=== PATIENT | female | born 1990 | race African-American/Black ===

== ENCOUNTER → 2024-03-28 10:46 | Outpatient (CLI) | payer SELFPAY ==
--- NOTE | 2024-03-28 10:47 | DI.RAD.S_ITS ---
PROCEDURE: XR WRIST RT MIN 3V INDICATIONS: Right wrist pain TECHNIQUE: 4 views of the wrist were acquired. COMPARISON: None. FINDINGS: Bones: No fractures or dislocations. No suspicious bony lesions. Soft tissues: No suspicious soft tissue calcifications. IMPRESSION: No acute osseous abnormality. If pain persists with conservative management, consider repeat x-ray in 10-14 days or cross-sectional imaging. Dictated by: Erich Hart M.D. on 03/28/2024 at 11:06 Approved by: Erich Hart M.D. on 03/28/2024 at 11:06
== END ==
PROVIDERS: Referring Provider Physician Assistant Medical; Visit Provider Physician Assistant Medical
DX: M25.531 Pain in right wrist (principal)
CPT/HCPCS: 73110

== ENCOUNTER → 2024-08-14 09:34 | Outpatient (CLI) | payer OTHER, SELFPAY ==
[2024-08-14 10:27] LABS: COVID-19 CEPHEID 4-PLEX PCR Negative (Negative); Influenza A - CEPHEID Flu A NEGATIVE (NEGATIVE); Influenza B - CEPHEID Flu B NEGATIVE (NEGATIVE); Respiratory Syncytial Virus Negative (Negative)
== END ==
PROVIDERS: Visit Provider Nurse Practitioner Family
DX: J02.9 Acute pharyngitis, unspecified (principal); R05.1 Acute cough; N94.9 Unspecified condition associated with female genital organs and menstrual cycle
CPT/HCPCS: 0241U; 87070; 87210

== ENCOUNTER → 2024-08-14 09:53 | Outpatient (CLI) | payer OTHER, SELFPAY ==
[2024-08-14 10:35] LABS: Pregnancy Test Urine Negative (Negative)
[2024-08-14 11:40] LABS: Hepatitis B Surface Antigen NEGATIVE s/c (NEGATIVE)
[2024-08-14 11:56] LABS: Urine N gonorrhoeae NOT DETECTED
[2024-08-14 11:57] LABS: HIV 1 & 2 Ab/Ag 4th Gen Combo NEGATIVE (NEGATIVE); Hep C Virus Ab w/Reflex Quant NEGATIVE s/c (NEGATIVE)
[2024-08-14 12:13] LABS: Urine Chlamydia NOT DETECTED
[2024-08-21 08:18] LABS: RPR Screen Non Reactive
== END ==
PROVIDERS: Referring Provider Nurse Practitioner Family; Visit Provider Nurse Practitioner Family
DX: N94.9 Unspecified condition associated with female genital organs and menstrual cycle (principal); J02.9 Acute pharyngitis, unspecified; R05.1 Acute cough
CPT/HCPCS: 0241U; 36415; 81025; 86592; 86803; 87070; 87210; 87340; 87389; 87491; 87591